=== PATIENT | female | born 1975 | race Caucasian/White ===

== ENCOUNTER 2016-09-17 18:11 | Emergency (ER) | payer OTHER ==
[~2016-09-17] VITALS: Ht 172.7 cm; Wt 125.1 kg
[~2016-09-17 18:11] MED LIST: INDOCIN25 MG PO; NAPROSYN500 MG PO; NOHOMEMEDS; NORCO 5/3251 TABLET PO; TRAMADOL HCL50 MG PO
[2016-09-17] MEDS ORDERED: MUCINEX D ER T1 EACH PO (20:47)
[2016-09-17] MEDS ORDERED: FLONASE16 G1 BOTH NARES (20:47)
[2016-09-17] MEDS ORDERED: TESSALON PERLE100 MG PO (20:47)
[2016-09-17 21:21] VITALS: BP 130/72
== END 2016-09-17 21:22 | disposition home or self-care (01) ==
LOC: EME 18:11
DX: B34.9 Viral infection, unspecified (principal); H65.03 Acute serous otitis media, bilateral; J40 Bronchitis, not specified as acute or chronic
CPT/HCPCS: 71020; 99281; 99283

== ENCOUNTER 2017-09-05 21:41 | Inpatient (IN) | payer OTHER ==
[~2017-09-05] VITALS: Ht 172.7 cm; Wt 120.5 kg
[~2017-09-05 21:41] MED LIST changes: +FLONASE16 G1 BOTH NARES; +MUCINEX D ER T1 EACH PO; +TESSALON PERLE100 MG PO
[2017-09-05 21:54] VITALS: BP 117/58
[2017-09-05 22:42] LABS: BASOPHIL (%) 0.3 % (0-1); EOSINOPHIL (%) 0.5 % (0-5); HEMATOCRIT 34.2 % (36.0-46.0); HEMOGLOBIN 10.9 G/DL (11.9-15.5); IMMATURE GRANULOCYTE (%) 0.3 % (0.0-0.7); LYMPHOCYTE (%) 15.7 % (15-42); LYMPHOCYTE COUNT 1.4 K/uL (1.0-2.8); MCH 27.7 PG (29.0-34.0); MCHC 31.9 G/DL (30.0-36.0); MCV 86.8 FL (83-99); MONOCYTE (%) 6.5 % (3-12); MONOCYTE COUNT 0.6 K/uL (0-0.8); NEUTROPHIL (%) 76.7 % (45-76); NEUTROPHIL COUNT 6.8 K/uL (1.8-6.4); PLATELET COUNT 183 K/uL (156-360); RBC DIS.WIDTH-CV 13.3 % (11.8-14.6); RBC DIS.WIDTH-SD 42.2 % (39-53); RED BLOOD COUNT 3.94 M/uL (3.80-5.20); WHITE BLOOD COUNT 8.8 K/uL (4.1-10.2)
[2017-09-05 22:51] LABS: ALBUMIN 3.2 g/dL (3.2-4.8); CHLORIDE 110 mEq/L (99-109); POTASSIUM 4.3 mEq/L (3.7-5.4); SODIUM 140 mEq/L (136-147)
[2017-09-05 22:53] LABS: GLUCOSE 103 mg/dL (70-99)
[2017-09-05 22:54] LABS: TOTAL PROTEIN 5.7 g/dL (6.4-8.3)
[2017-09-05 22:55] LABS: TOTAL BILIRUBIN 0.3 mg/dL (0.0-1.0)
[2017-09-05 22:57] LABS: ALKALINE PHOSPHATASE 122 IU/L (3-129); CREATININE 0.6 mg/dL (0.6-1.3); GFR ESTIMATE (CALCULATED) > 59 mL/min/
[2017-09-05 22:58] LABS: UREA NITROGEN (BUN) 11 mg/dL (9-23)
[2017-09-05 22:59] LABS: AST (GOT) 21 IU/L (2-34)
[2017-09-05 23:00] LABS: ALT (GPT) 32 IU/L (3-49); PTT 25.4 SEC (25-37)
[2017-09-05 23:26] LABS: FIBRINOGEN 552 mg/dL (150-450)
[2017-09-06] VITALS (18 sets, daily range): BP systolic 122–141; BP diastolic 58–71
[2017-09-06 07:24] LABS: AMPHETAMINE NEGATIVE (500 ng/mL); BARBITURATES NEGATIVE (200 ng/mL); BENZODIAZEPINES NEGATIVE (150 ng/mL); BUPRENORPHINE NEGATIVE (10 ng/mL); COCAINE NEGATIVE (150 ng/mL); METHADONE NEGATIVE (200 ng/mL); METHAMPHETAMINE NEGATIVE (500 ng/mL); OPIATES (MORPHINE) NEGATIVE (100 ng/mL); OXYCODONE NEGATIVE (100 ng/mL); PHENCYCLIDINE NEGATIVE (25 ng/mL); PROPOXYPHENE NEGATIVE (300 ng/mL); THC CANNABINOIDS NEGATIVE (50 ng/mL); TRICYCLIC ANTIDEPRESSANTS NEGATIVE (300 ng/mL)
[2017-09-07] VITALS (12 sets, daily range): BP systolic 115–141; BP diastolic 56–82
[2017-09-08 07:22] LABS: BASOPHIL (%) 0.5 % (0-1); BASOPHIL COUNT 0.1 K/uL (0-0.1); EOSINOPHIL (%) 0.4 % (0-5); HEMATOCRIT 27.2 % (36.0-46.0); IMMATURE GRANULOCYTE (%) 0.6 % (0.0-0.7); LYMPHOCYTE (%) 16.9 % (15-42); LYMPHOCYTE COUNT 1.8 K/uL (1.0-2.8); MCH 27.8 PG (29.0-34.0); MCV 86.9 FL (83-99); MONOCYTE (%) 6.2 % (3-12); MONOCYTE COUNT 0.7 K/uL (0-0.8); NEUTROPHIL (%) 75.4 % (45-76); NEUTROPHIL COUNT 8.2 K/uL (1.8-6.4); PLATELET COUNT 177 K/uL (156-360); RBC DIS.WIDTH-CV 13.7 % (11.8-14.6); RBC DIS.WIDTH-SD 43.2 % (39-53); WHITE BLOOD COUNT 10.8 K/uL (4.1-10.2)
[2017-09-08 07:23] VITALS: BP 131/61
[2017-09-08 07:24] LABS: HEMOGLOBIN 8.7 G/DL (11.9-15.5); RED BLOOD COUNT 3.13 M/uL (3.80-5.20)
[2017-09-08 10:39] VITALS: BP 116/73
[2017-09-08 15:20] VITALS: BP 153/83
[2017-09-09 07:21] VITALS: BP 120/58
[2017-09-09] MEDS ORDERED: FERROUS SULFAT325 MG PO (09:17)
[2017-09-09] MEDS ORDERED: IBUPROFEN800 MG PO (09:17)
[2017-09-09] MEDS ORDERED: ENDOCET 5-3251 EACH PO (09:17)
== END 2017-09-09 10:40 | disposition home or self-care (01) | DRG 765 ==
LOC: LDRP-OP 21:41 → 2WEST 21:42
PROVIDERS: Advanced Practice Midwife; Obstetrics & Gynecology
DX: O76 Abnormality in fetal heart rate and rhythm complicating labor and delivery (principal); Z30.2 Encounter for sterilization; O69.81X0 Labor and delivery complicated by cord around neck, without compression, not applicable or unspecified; O99.02 Anemia complicating childbirth; D62 Acute posthemorrhagic anemia; O99.214 Obesity complicating childbirth; E66.01 Morbid (severe) obesity due to excess calories; Z68.41 Body mass index [BMI] 40.0-44.9, adult; Z23 Encounter for immunization; Z3A.39 39 weeks gestation of pregnancy; Z37.0 Single live birth
CPT/HCPCS: 76815; 80053; 85025; 85384; 85610; 85730; 86780; 86850; 86900; 86901; 86920; 88307; 90686; G0378; J0690; J2274; J7120